=== PATIENT | male | born 1985 | race Caucasian/White ===

== ENCOUNTER 2021-05-16 19:50 | Emergency (ER) | payer OTHER ==
[2021-05-16 20:36] LABS: HEMOGLOBIN 15.8 gm/dl (14.0-17.5); RED BLOOD COUNT 4.71 M/UL (4.20-5.50); WHITE BLOOD COUNT 7.8 K/UL (4.5-11.0)
[2021-05-16 21:04] LABS: BUN/CREATININE RATIO 14 (0-10)
[2021-05-16] MEDS ORDERED: ZOFRAN 4 MG TAB4 MG PO (22:06)
== END 2021-05-16 22:15 | disposition home or self-care (01) ==
LOC: ER1 19:50
PROVIDERS: Physician Assistant Medical
DX: I10 Essential (primary) hypertension (principal); R06.02 Shortness of breath; R10.9 Unspecified abdominal pain
CPT/HCPCS: 71045; 80053; 81001; 82550; 82553; 83605; 84484; 85025; 93005; 99285; Q9967